=== PATIENT | male | born 1975 | race Caucasian/White ===

== ENCOUNTER 2020-04-26 10:07 | Outpatient (CLI) | payer BC, SELFPAY ==
[2020-04-26 10:27] LABS: Basophils % 0.5 %; Eosinophils # 0.1 10^3/uL (0.0-0.8); Eosinophils % 1.6 %; Hematocrit 47.3 % (42.0-52.0); Hemoglobin 15.7 g/dL (11.7-16.6); Lymphocytes # 2.1 10^3/uL (0.8-4.8); Lymphocytes % 25.7 %; Mean Corpuscular HGB Conc 33.2 g/dL (30.0-36.0); Mean Corpuscular Hemoglobin 32.8 pg (28.0-34.0); Mean Corpuscular Volume 98.7 fL (80-94); Mean Platelet Volume 10.3 fL (7.4-10.4); Monocytes # 0.6 10^3/uL (0.2-0.9); Monocytes % 7.5 %; Neutrophils # 5.2 10^3/uL (1.8-7.7); Neutrophils % 64.5 %; Nucleated Red Blood Cells % 0 %; Platelet Count 236 10^3/cmm (130-400); Red Blood Count 4.79 10^6/uL (4.1-5.3); Red Cell Distribution Width 12.6 % (12.1-15.1); White Blood Count 8.1 10^3/uL (4.0-10.0)
[2020-04-26 10:59] LABS: Carcinoembryonic Antigen 1.4 ng/mL (0.0-4.7)
[2020-04-26 11:10] LABS: Alanine Aminotransferase 54 U/L (0-41); Albumin Level 4.2 g/dL (3.5-5.2); Alkaline Phosphatase 48 IU/L (40-130); Anion Gap 18.5 (5-19); Aspartate Amino Transferase 50 U/L (0-40); Blood Urea Nitrogen 11 mg/dL (6-20); Calcium 9.8 mg/dL (8.5-10.5); Carbon Dioxide 25 mmol/L (22-29); Chloride 98 mmol/L (98-107); Globulin 3.3 g/dL (1.3-4.6); Glomerular Filtration Rate 81.9 mL/min (90-130); Glucose 147 mg/dL (65-115); Osmolality Calculated 283 mOsm/kg (285-295); Potassium 4.5 mmol/L (3.5-5.1); Sodium 137 mmol/L (136-145); Total Bilirubin 0.4 mg/dL (0.15-1.2); Total Protein 7.5 g/dL (6.6-8.7)
--- NOTE | 2020-04-30 07:05 | ONC FU_ITS ---
Dr. Dias Patient Follow-Up Note Patient: Chino Onofre Unit #: [id number]: 1975 Dicatated By: Michael Dias M.D.Date of Visit:Apr 26, 2020 Onc Med Follow-up/Prog Note Chief Complaint: Colon cancer. 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 He has been in good general health. In September he had presented to the emergency room with new onset of hematochezia. CT of the abdomen/pelvis at that time showed a short segment of bowel within the mid sigmoid colon with some adjacent hazy and stranding opacities within the sigmoid mesentery. The findings were felt to most likely represent mild colitis. He had no further evaluation at that time. However, his symptoms persisted, and he then did have evaluation with sigmoidoscopy on 11/25/2018. It showed a malignant appearing mass at the sigmoid colon. Biopsy showed low-grade infiltrating adenocarcinoma. CT scans of the chest, abdomen, and pelvis continued to show a short segment narrowing of the mid sigmoid colon with wall thickening and surrounding mesenteric hyperemia, unchanged from the prior study. There was no retroperitoneal or periaortic lymphadenopathy noted, and there was no other evidence of metastatic disease in the chest, abdomen, or pelvis. His baseline CEA level was 8.1 ng/mL. He was referred to Dr. Roberson. On 12/07/2018 he underwent robotic-assisted low anterior resection. His laparoscopic exploration showed no unexpected abnormalities and no evidence of intra-abdominal metastasis. The tumor was clearly identified in the mid sigmoid:. It was noted to be rather bulky, but not adherent to any adjacent structures. Pathology showed moderately differentiated invasive adenocarcinoma measuring 8.6 x 5.7 cm. The tumor was noted to invade the visceral peritoneum. There was no involvement in 30 lymph nodes, but a separate tumor deposit was present. His pathologic staging was T4a, N1c. I had seen him initially on 12/22/2018. In the setting of stage IIIB disease, he was recommended to undergo adjuvant chemotherapy with 4 cycles of oxaliplatin/Xeloda. He returned to begin cycle 1 of his adjuvant chemotherapy on 01/06/2019. He tolerated it with acceptable toxicity, limited to mild fatigue and mild, transient neuropathy. He was able to continue with cycle 2 on 01/27/2019. He did have significant worsening of his neuropathy symptoms with his 2nd cycle of treatment, including pain in his left arm associated with the oxaliplatin infusion. He also had much more intense paresthesia and cold sensitivity, and it lasted longer. The oxaliplatin dosage was reduced beginning with cycle 3. He began his 4th cycle of treatment on 03/10/2019. His surveillance CT scan on 10/11/2019 showed no evidence of a neoplastic process in the chest or upper abdominal area. The abdomen/pelvis was inadvertently not requested.. He is seen for a scheduled visit. He has been feeling okay. His main issue is that he has been working on his weight control. Recently he has been able to lose 12 pounds. His blood pressure is a little high when checked here today, but he says it is okay at home. He has good energy and he has normal activity. ECOG score is 0. He does have good appetite. He has no fever or night sweats. He has some allergy related sinus symptoms. He has no shortness of breath, cough, or chest pain. He has no GI or complaints. He has no significant joint or bone pain. He has no residual neuropathy. Medications: Acetaminophen 1 Tablet (of 500 mg) Oral PRN, Lisinopril 1 Tablet (of 10 mg) Oral daily Allergies: No Known Allergies. Review of Systems: Constitutional - He is feeling good generally. His energy is good and he has normal activity. His appetite is good. He reports that his has intentionally lost about 12 pounds with excersing. No fever, night sweats, or hot flashes. ECOG score is 0, ENMT - He has seasonal allergies. No mouth sores. No sore throat or difficulty swallowing, Hematologic/Lymphatic - No abnormal bruising or bleeding, Respiratory - No shortness of breath. No cough. No pleuritic pain or hemoptysis, Cardiovascular - No angina pain. No palpitations, Gastrointestinal - No nausea or vomiting. No heartburn or acid reflux. No diarrhea or constipation. No blood in the stool or black stools, Genitourinary (M) - No dysuria or hematuria. No urinary frequency. No urgency or incontinence, Musculoskeletal - No joint or bone pain, Integumentary - No skin complications, Neurologic - No headache or dizziness. No numbness/tingling or other neuropathy symptoms, Psychiatric - He has some mild anxiety. No depression. No insomnia. Vital Signs: Performed on Apr 26, 2020 11:33 Height - 72.00 in Weight - 348.0 lbs (HIGH) BSA - 2.70 sq.m BMI - 47.20 (HIGH) Temperature - 97.9 F (LOW) Pulse - 92 /min Respiration - 24 /min BP - 166/94 mm(hg) (HIGH) O2 Sat - 99 % Pain - 0 Physical Examination: Constitutional - He looks good generally, Eyes - Sclerae nonicteric. Conjunctivae clear, ENMT - No lesions noted in the oral cavity, Hematologic/Lymphatic - No cervical, clavicular, or axillary adenopathy, Respiratory - Lungs are clear with good air movement bilaterally, Cardiovascular - Heart rhythm is regular. There is no murmur, gallop, or rub noted, Abdomen - Soft. Liver and spleen are not enlarged. There is no abdominal mass or ascites noted and there is no inguinal adenopathy, Extremities - No edema, Neurologic - No focal neurologic deficits noted. Lab/Imaging: Test performed on Apr 26, 2020 10:18 Sodium 137 mmol/L Potassium 4.5 mmol/L Chloride 98 mmol/L CO2 25 mmol/L Anion Gap 18.5 BUN 11 mg/dL Creatinine 1.0 mg/dL Cr Clearance (Est) 196.3300 mL/min eGFR 81.9 mL/min Glucose 147 mg/dL Calcium 9.8 mg/dL Protein, Total 7.5 g/dL Albumin 4.2 g/dL Globulin 3.3 g/dL Bilirubin, Total 0.4 mg/dL ALT (SGPT) 54 U/L AST (SGOT) 50 U/L Alkaline Phosphatase 48 IU/L WBC 8.1 10 3/uL RBC 4.79 10 6/uL HGB 15.7 g/dL HCT 47.3 % MCV 98.7 fL MCH 32.8 pg MCHC 33.2 g/dL RDW 12.6 % Platelet Count 236 10 3/cmm MPV 10.3 fL Neutrophils 5.2 10 3/uL Lymphocytes 2.1 10 3/uL Monocytes 0.6 10 3/uL Eosinophils 0.1 10 3/uL Basophils 0.0 10 3/uL Neutrophil % 64.5 % Lymphocyte % 25.7 % Monocyte % 7.5 % Eosinophil % 1.6 % Basophils % 0.5 % NRBC % 0 % CEA 1.4 ng/mL Impression: 1. 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 2. He will underwent robotic-assisted low anterior resection on 12/07/2018. 3. His preoperative evaluation included sigmoidoscopy and staging CT scans of the chest, abdomen, and pelvis. He did not have a full colonoscopy. His other medical illnesses include: 4. Hypertension. 5. Anxiety. He was given adjuvant chemotherapy with oxaliplatin/Xeloda. He began cycle 1 on 01/06/2019. He tolerated it with acceptable toxicity, which included just mild, transient neuropathy. With cycle 2 the neuropathy worsened significantly, though it subsequently did resolve. The oxaliplatin dosage was reduced beginning with the 3rd cycle. He began cycle 4 on 03/10/2019. Overall, he tolerated the chemotherapy very well. During follow-up his activity tolerance had returned to normal, and he had complete resolution of his neuropathy symptoms. Overall, he has been doing very well clinically. His current laboratory studies show mild elevation of his liver enzymes. His CEA, though, is stable. Plan: He remains on observation/expectant management for the colon cancer. Due to the mildly elevated liver enzymes, he will be scheduled for a CT abdomen/pelvis. Assuming there is no evidence of metastatic disease, I will just plan to see him again in 6 months. In the meantime, I will check with Dr. Mackenzie regarding his surveillance colonoscopy schedule. Signed By: Michael Dias M.D. <<Signature on File>>
== END 2020-04-26 10:08 | disposition home or self-care (01) ==
LOC: ONCMED 10:11
PROVIDERS: PCP Family Medicine; Visit Provider Internal Medicine Medical Oncology
DX: C18.7 Malignant neoplasm of sigmoid colon (principal); R94.5 Abnormal results of liver function studies; I10 Essential (primary) hypertension; F41.9 Anxiety disorder, unspecified; Z90.49 Acquired absence of other specified parts of digestive tract; Z92.21 Personal history of antineoplastic chemotherapy
CPT/HCPCS: 80053; 82378; 85025; G0463

== ENCOUNTER 2020-05-18 12:59 | Outpatient (CLI) | payer BC, SELFPAY ==
--- NOTE | 2020-05-18 13:04 | CT_ITS ---
WS: [id number] CT ABDOMEN PELVIS TECHNIQUE: Contrast-enhanced CT of the abdomen and pelvis with coronal and sagittal reformatted image s. CLINICAL INFORMATION: COLON CANCER COMPARISON: CT [address] 2017 DLP: 1514.[address] scans at [facility] use at least one of these dose optimization techniques: automat ed exposure control; mA and/or kV adjustment per patient size (includes targeted exams where dose is matched to clinical indication); or iterative reconstruction. FINDINGS: Postoperative changes partial sigmoid resection new from previous. Mild narrowing at the anastomosis appears patent. No evidence of residual or recurrent disease in the sigmoid colon. Sigmoid diverticul osis. No evidence of acute diverticulitis. No evidence of metastatic disease in the abdomen or pelvis. Liver is normal in appearance. Normal gal lbladder. Normal portal vein and splenic vein. Pancreatic fatty atrophy. Spleen is normal. Normal gas troesophageal junction. Normal perirectal fat. Adrenal glands are normal. No periaortic or retroperitoneal lymphadenopathy. N o inguinal lymphadenopathy. Normal caliber abdominal aorta. Normal renal parenchymal enhancement. CT/CT abdomen pelvis w con* [id number] IMPRESSION: 1. Postoperative changes partial sigmoid resection new from previous. No evide nce of residual or recurrent disease. Mild narrowing at the anastomosis. 2. No abdominal or pelvic lymphadenopathy. 3. No evidence of metastatic disease in the abdomen or pelvis. 4. No other significant changes.
[2020-05-18] MEDS: iohexol 300 mg/mL 100 mL Btl IV (13:23)
[2020-05-18] MEDS: iohexol 300 mg/mL 50 mL Btl PO (13:23)
== END 2020-05-18 13:00 | disposition home or self-care (01) ==
LOC: RADWPI 13:02
PROVIDERS: Family Provider Family Medicine; PCP Family Medicine; Visit Provider Internal Medicine Medical Oncology
DX: C18.7 Malignant neoplasm of sigmoid colon (principal)
CPT/HCPCS: 74177; Q9967

== ENCOUNTER 2020-11-15 09:56 | Outpatient (CLI) | payer OTHER, SELFPAY ==
[2020-11-15 10:29] LABS: Basophils # 0.1 10^3/uL (0.0-0.1); Basophils % 0.5 %; Eosinophils # 0.1 10^3/uL (0.0-0.8); Eosinophils % 1.5 %; Hematocrit 46.7 % (42.0-52.0); Hemoglobin 15.8 g/dL (11.7-16.6); Lymphocytes % 20.5 %; Mean Corpuscular HGB Conc 33.8 g/dL (30.0-36.0); Mean Corpuscular Hemoglobin 33.3 pg (28.0-34.0); Mean Corpuscular Volume 98.5 fL (80-94); Mean Platelet Volume 10.1 fL (7.4-10.4); Monocytes # 0.6 10^3/uL (0.2-0.9); Monocytes % 6.6 %; Neutrophils # 6.79 10^3/uL (1.8-7.7); Neutrophils % 70.6 %; Nucleated Red Blood Cells % 0 %; Platelet Count 258 10^3/cmm (130-400); Red Blood Count 4.74 10^6/uL (4.1-5.3); Red Cell Distribution Width 12.3 % (12.1-15.1); White Blood Count 9.6 10^3/uL (4.0-10.0)
[2020-11-15 10:58] LABS: Alanine Aminotransferase 33 U/L (0-41); Albumin Level 4.3 g/dL (3.5-5.2); Alkaline Phosphatase 53 IU/L (40-130); Anion Gap 15.2 (5-19); Aspartate Amino Transferase 29 U/L (0-40); Blood Urea Nitrogen 11 mg/dL (6-20); Calcium 9.7 mg/dL (8.5-10.5); Carbon Dioxide 27 mmol/L (22-29); Chloride 98 mmol/L (98-107); Chol HDL Ratio 4.03 mg/dL (1.0-5.00); Cholesterol 145 mg/dL (0-200); Globulin 2.6 g/dL (1.3-4.6); Glomerular Filtration Rate 92.1 mL/min (90-130); Glucose 149 mg/dL (65-115); HDL Cholesterol 36 mg/dL (60-100); LDL Cholesterol Calculated 76 mg/dL (50-129); LDL HDL Ratio 2.11 RATIO (0.00-3.22); Osmolality Calculated 284 mOsm/kg (285-295); Potassium 4.2 mmol/L (3.5-5.1); Sodium 136 mmol/L (136-145); Total Bilirubin 0.6 mg/dL (0.15-1.2); Total Protein 6.9 g/dL (6.6-8.7); Triglycerides 167 mg/dL (0-150)
[2020-11-15 14:10] LABS: Carcinoembryonic Antigen 1.7 ng/mL (0.0-4.7)
--- NOTE | 2020-11-18 14:52 | ONC FU_ITS ---
Dr. Dias Patient Follow-Up Note Patient: Chino nOofre Unit #: [id number]: 1975 Dicatated By: Michael Dias M.D.Date of Visit:Nov 15, 2020 Onc Med Follow-up/Prog Note Chief Complaint: Colon cancer. 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 He has been in good general health. In September he had presented to the emergency room with new onset of hematochezia. CT of the abdomen/pelvis at that time showed a short segment of bowel within the mid sigmoid colon with some adjacent hazy and stranding opacities within the sigmoid mesentery. The findings were felt to most likely represent mild colitis. He had no further evaluation at that time. However, his symptoms persisted, and he then did have evaluation with sigmoidoscopy on 11/25/2018. It showed a malignant appearing mass at the sigmoid colon. Biopsy showed low-grade infiltrating adenocarcinoma. CT scans of the chest, abdomen, and pelvis continued to show a short segment narrowing of the mid sigmoid colon with wall thickening and surrounding mesenteric hyperemia, unchanged from the prior study. There was no retroperitoneal or periaortic lymphadenopathy noted, and there was no other evidence of metastatic disease in the chest, abdomen, or pelvis. His baseline CEA level was 8.1 ng/mL. He was referred to Dr. Roberson. On 12/07/2018 he underwent robotic-assisted low anterior resection. His laparoscopic exploration showed no unexpected abnormalities and no evidence of intra-abdominal metastasis. The tumor was clearly identified in the mid sigmoid:. It was noted to be rather bulky, but not adherent to any adjacent structures. Pathology showed moderately differentiated invasive adenocarcinoma measuring 8.6 x 5.7 cm. The tumor was noted to invade the visceral peritoneum. There was no involvement in 30 lymph nodes, but a separate tumor deposit was present. His pathologic staging was T4a, N1c. I had seen him initially on 12/22/2018. In the setting of stage IIIB disease, he was recommended to undergo adjuvant chemotherapy with 4 cycles of oxaliplatin/Xeloda. He returned to begin cycle 1 of his adjuvant chemotherapy on 01/06/2019. He tolerated it with acceptable toxicity, limited to mild fatigue and mild, transient neuropathy. He was able to continue with cycle 2 on 01/27/2019. He did have significant worsening of his neuropathy symptoms with his 2nd cycle of treatment, including pain in his left arm associated with the oxaliplatin infusion. He also had much more intense paresthesia and cold sensitivity, and it lasted longer. The oxaliplatin dosage was reduced beginning with cycle 3. He began his 4th cycle of treatment on 03/10/2019. His surveillance CT scan on 10/11/2019 showed no evidence of a neoplastic process in the chest or upper abdominal area. The abdomen/pelvis was inadvertently not requested. At his follow-up visit in April 2020 his liver enzymes are noted to be slightly elevated. His CT abdomen/pelvis on 05/18/2020 showed no evidence of metastatic disease. He is seen for a scheduled visit. He has been feeling pretty good generally. His main complaint is he has been having a lot of anxiety. He has had somewhat limited activity tolerance. ECOG score is 1. He has good appetite. He has been trying to lose weight, and he is down 8 or 9 pounds. He has no fever or night sweats. He has no shortness of breath, cough, or chest pain. He has been having some problems with hemorrhoids, and he has had a little bit of rectal bleeding with it. He has some difficulty passing hard stools. He has no complaints. He has no significant joint or bone pain. He has no residual neuropathy symptoms. Medications: Acetaminophen 1 Tablet (of 500 mg) Oral PRN, Lisinopril 1 Tablet (of 10 mg) Oral daily Allergies: No Known Allergies. Vital Signs: Performed on Nov 15, 2020 11:38 Height - 72.00 in Weight - 340.8 lbs (LOW) BSA - 2.67 sq.m BMI - 46.22 (HIGH) Temperature - 97.0 F (LOW) Pulse - 106 /min (HIGH) Respiration - 18 /min O2 Sat - 96 % Pain - 0 Physical Examination: Constitutional - He looks good generally, Eyes - Sclerae nonicteric. Conjunctivae clear, ENMT - No lesions noted in the oral cavity, Hematologic/Lymphatic - No cervical, clavicular, or axillary adenopathy, Respiratory - Lungs are clear with good air movement bilaterally, Cardiovascular - Heart rhythm is regular. There is no murmur, gallop, or rub noted, Abdomen - Soft. Liver and spleen are not enlarged. There is no abdominal mass or ascites noted and there is no inguinal adenopathy, Extremities - No edema, Neurologic - No focal neurologic deficits noted. Lab/Imaging: Test performed on Nov 15, 2020 10:15 WBC 9.6 10 3/uL RBC 4.74 10 6/uL HGB 15.8 g/dL HCT 46.7 % MCV 98.5 fL MCH 33.3 pg MCHC 33.8 g/dL RDW 12.3 % Platelet Count 258 10 3/cmm MPV 10.1 fL Neutrophils 6.79 10 3/uL Lymphocytes 2.0 10 3/uL Monocytes 0.6 10 3/uL Eosinophils 0.1 10 3/uL Basophils 0.1 10 3/uL Neutrophil % 70.6 % Lymphocyte % 20.5 % Monocyte % 6.6 % Eosinophil % 1.5 % Basophils % 0.5 % NRBC % 0 % CEA 1.7 ng/mL Historic Problem List: 1. Moderately differentiated invasive adenocarcinoma of the sigmoid colon, stage IIIB (pT4a, pN1c, M0). 2. He underwent robotic-assisted low anterior resection on 12/07/2018. 3. He was given adjuvant chemotherapy with 4 cycles oxaliplatin/Xeloda, completed in March 2019. 4. Hypertension. 5. Anxiety. Problems Addressed with this Encounter and Plan: 1. Moderately differentiated invasive adenocarcinoma of the sigmoid colon, stage IIIB (pT4a, pN1c, M0). He underwent robotic-assisted low anterior resection on 12/07/2018. He was given adjuvant chemotherapy with 4 cycles oxaliplatin/Xeloda, completed in March 2019. At his follow-up visit in April 2020 his liver enzymes were noted to be slightly elevated. CT abdomen/pelvis on 05/18/2020 showed no evidence of metastatic disease. He has since then had some ongoing problems with his anxiety and recently he has had some rectal bleeding, presumed to be hemorrhoidal. Thus far there has been no evidence of recurrence of the colon cancer. He is scheduled to see Dr. Mackenzie in regard to the hemorrhoids/rectal bleeding. I will tentatively just plan a follow-up visit here in 6 months. He will have restaging CT scans prior to that visit. 2. Hypertension. His blood pressure is significantly elevated, but that may just be anxiety related. He will be following up with Dr. Wynne for that problem. Signed By: Michael Dias M.D. <<Signature on File>>
== END 2020-11-15 09:57 | disposition home or self-care (01) ==
LOC: ONCMED 09:59
PROVIDERS: Family Provider Family Medicine; PCP Family Medicine; Visit Provider Internal Medicine Medical Oncology
DX: Z08 Encounter for follow-up examination after completed treatment for malignant neoplasm (principal); Z85.038 Personal history of other malignant neoplasm of large intestine; F41.9 Anxiety disorder, unspecified; I10 Essential (primary) hypertension; K62.5 Hemorrhage of anus and rectum; Z92.21 Personal history of antineoplastic chemotherapy; Z90.49 Acquired absence of other specified parts of digestive tract
CPT/HCPCS: 36415; 80053; 80061; 82378; 85025; G0463

== ENCOUNTER → 2021-01-04 11:39 | Outpatient (BNVA) | payer OTHER, SELFPAY | PROVIDERS: Family Provider Family Medicine; PCP Family Medicine; Visit Provider Surgery | DX: Z11.52 Encounter for screening for COVID-19 (principal) | CPT/HCPCS: 87635 ==

== ENCOUNTER 2021-01-10 05:43 | Day surgery (SDC) | payer OTHER, SELFPAY ==
[2021-01-09 10:46] VITALS: BMI 44.0
[2021-01-10 05:56] VITALS: BP 172/107; PULSE 89; RESP 16; TEMP 36.3; O2SAT 97
[2021-01-10] MEDS: sodium chloride 0.9% 1,000 ML 30 ML IV (06:20)
--- NOTE | 2021-01-10 06:27 | W.PM.OPSUD ---
Surgery/Procedure H&P Update DATE OF PROCEDURE: January 10, 2021 DATE H&P PERFORMED: 12/25/20 H&P UPDATE INFORMATION: No changes to prior documentation PREOP DIAGNOSIS: Hematochezia, anorectal pain, history of colon cancer PLANNED PROCEDURE: Operation Date: 01/10/21 07:00 Proposed Procedures p Sigmoidoscopy 96037 K92.1(Not Applicable) - Irvin Mackenzie MD s Poss Hemorroidectomy 28134 Z85.038 K62.89(Not Applicable) - Irvin Mackenzie MD
--- NOTE | 2021-01-10 06:51 | ANES.PREANE2 ---
Pre-Anesthetic Assessment Pre-Anesthetic Assessment: Height/Weight: Height 1.83 m Weight 147.418 kg Temp Pulse Resp BP Pulse Ox 97.4 F L 89 16 172/107 97 01/10/21 05:56 01/10/21 05:56 01/10/21 05:56 01/10/21 05:56 01/10/21 05:56 Preop Diagnosis: Hematochezia, anorectal pain, history of colon cancer Proposed Procedure: Operation Date: 01/10/21 07:00 Proposed Procedures p Sigmoidoscopy 47776 K92.1(Not Applicable) - Irvin Mackenzie MD s Poss Hemorroidectomy 76047 Z85.038 K62.89(Not Applicable) - Irvin Mackenzie MD Familial anesthetic complications: None Was Beta Nadja taken within 24 hours: N/A Last intake: Intake Last Liquid Date 01/09/21 Last Liquid Time 23:00 Last Solid Date 01/08/21 Last Solid Time 21:00 Social: Social History: Tobacco and No alcohol Comment: occassional cigar Exam: Pre-Anes Outpt Exam: alert, oriented x 3, clear to auscultation bilaterally and regular rate & rhythm Airway: Cervical ROM: WNL MP: 3 Dentition: Full CV/HEM: CV/HEM: HTN Metabolic: Metabolic: Morbid obesity Anesthetic Plan: ASA status: 2 Anesthesia: MAC Risk of > 500 ml blood loss (7ml/kg in children): No Meds/Allergies Current Medications: Current Medications Generic Name Dose Route Start Last Admin Trade Name Freq PRN Reason Stop Dose Admin Sodium Chloride 1,000 mls @ 30 ml s/hr 01/10/21 06:00 01/10/21 06:20 Sodium Chloride 0.9% IV 01/11/21 05:59 30 mls/hr .Q24H YONY Administration Data Anesthesia Cardiac Studies: No Data to Display
[2021-01-10 07:26] VITALS: BP 164/108; PULSE 96; RESP 18; TEMP 36.8; O2SAT 96
[2021-01-10 07:30] VITALS: BP 149/87; PULSE 71; RESP 18; O2SAT 100
--- NOTE | 2021-01-10 07:30 | P.PCN_ITS ---
PACU note PACU note: VSS, Good respiratory effort, report to [employer] Post-Anesthesia Exam: awake
--- NOTE | 2021-01-10 07:30 | PM.PACU ---
PACU note PACU note: VSS, Good respiratory effort, report to [employer] Post-Anesthesia Exam: awake
[2021-01-10 07:36] VITALS: BP 177/82; PULSE 83; RESP 18; TEMP 36.8; O2SAT 100
[2021-01-10 07:48] VITALS: BP 178/92; PULSE 86; RESP 18; O2SAT 97
[2021-01-10 08:04] VITALS: BP 153/98; PULSE 89; RESP 18; O2SAT 98
--- NOTE | 2021-01-10 14:46 | ANE.PACU2 ---
Inpatient post-anesthesia follow up: Airway intact: Yes Vital signs: Temperature 98.2 F Pulse Rate 89 Respiratory Rate 18 Blood Pressure 153/98 Pulse Oximetry 98 Oxygen Delivery Me thod Room Air Oxygen Flow Rate 8 Fraction of Inspir ed Oxygen Hydration adequate: Yes Nausea and vomiting: No Pain level: 3 Mental status: Baseline
== END 2021-01-10 08:10 | disposition home or self-care (01) ==
PROVIDERS: PCP Family Medicine; Visit Provider Surgery
PROC: 0DJD8ZZ Inspection of Lower Intestinal Tract, Via Natural or Artificial Opening Endoscopic (ICD-10-PCS; CPT 45330; principal; 2021-01-10 07:00)
DX: K92.1 Melena (principal); K64.8 Other hemorrhoids; C18.7 Malignant neoplasm of sigmoid colon; I10 Essential (primary) hypertension; E66.01 Morbid (severe) obesity due to excess calories; Z68.41 Body mass index [BMI] 40.0-44.9, adult
CPT/HCPCS: 12345; 45331; 45335; 88305; J2704; J3010; J7030

== ENCOUNTER 2021-01-14 15:21 | Outpatient (CLI) | payer OTHER, SELFPAY ==
--- NOTE | 2021-01-15 07:29 | ONC FU_ITS ---
Dr. Dias Patient Follow-Up Note Patient: Chino Onofre Unit #: [id number]: 1975 Dicatated By: Michael Dias M.D.Date of Visit:Jan 14, 2021 Onc Med Follow-up/Prog Note Chief Complaint: Colon cancer. 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 He has been in good general health. In September he had presented to the emergency room with new onset of hematochezia. CT of the abdomen/pelvis at that time showed a short segment of bowel within the mid sigmoid colon with some adjacent hazy and stranding opacities within the sigmoid mesentery. The findings were felt to most likely represent mild colitis. He had no further evaluation at that time. However, his symptoms persisted, and he then did have evaluation with sigmoidoscopy on 11/25/2018. It showed a malignant appearing mass at the sigmoid colon. Biopsy showed low-grade infiltrating adenocarcinoma. CT scans of the chest, abdomen, and pelvis continued to show a short segment narrowing of the mid sigmoid colon with wall thickening and surrounding mesenteric hyperemia, unchanged from the prior study. There was no retroperitoneal or periaortic lymphadenopathy noted, and there was no other evidence of metastatic disease in the chest, abdomen, or pelvis. His baseline CEA level was 8.1 ng/mL. He was referred to Dr. Roberson. On 12/07/2018 he underwent robotic-assisted low anterior resection. His laparoscopic exploration showed no unexpected abnormalities and no evidence of intra-abdominal metastasis. The tumor was clearly identified in the mid sigmoid:. It was noted to be rather bulky, but not adherent to any adjacent structures. Pathology showed moderately differentiated invasive adenocarcinoma measuring 8.6 x 5.7 cm. The tumor was noted to invade the visceral peritoneum. There was no involvement in 30 lymph nodes, but a separate tumor deposit was present. His pathologic staging was T4a, N1c. I had seen him initially on 12/22/2018. In the setting of stage IIIB disease, he was recommended to undergo adjuvant chemotherapy with 4 cycles of oxaliplatin/Xeloda. He returned to begin cycle 1 of his adjuvant chemotherapy on 01/06/2019. He tolerated it with acceptable toxicity, limited to mild fatigue and mild, transient neuropathy. He was able to continue with cycle 2 on 01/27/2019. He did have significant worsening of his neuropathy symptoms with his 2nd cycle of treatment, including pain in his left arm associated with the oxaliplatin infusion. He also had much more intense paresthesia and cold sensitivity, and it lasted longer. The oxaliplatin dosage was reduced beginning with cycle 3. He began his 4th cycle of treatment on 03/10/2019. His surveillance CT scan on 10/11/2019 showed no evidence of a neoplastic process in the chest or upper abdominal area. The abdomen/pelvis was inadvertently not requested. At his follow-up visit in April 2020 his liver enzymes are noted to be slightly elevated. His CT abdomen/pelvis on 05/18/2020 showed no evidence of metastatic disease. He was seen for a scheduled follow-up visit on 11/15/2020. His CEA was stable at 1.7 ng/mL. He also appeared stable clinically, but that time he had developed some mild rectal bleeding which he had attributed to hemorrhoids. Subsequent to that visit, he was seen by Dr. Mackenzie for evaluation of the bleeding. His repeat colonoscopy on 01/09/2021 showed a protruding, small to medium sized malignant appearing mass in the distal sigmoid colon at the previous anastomosis, estimated at 15 to 16 cm. There were stigmata of bleeding from the mass. The rectum showed just small sized uncomplicated internal hemorrhoids without evidence of bleeding. There were no other abnormal findings. Biopsy results at this point are still pending. He has still been feeling good generally. He is still having a little bit of blood in the stool, but that began only after he had started working out again and was exercising more strenuously. He has no other associated GI symptoms, and he is still feeling good generally. Medications: Acetaminophen 1 Tablet (of 500 mg) Oral PRN, Lisinopril 1 Tablet (of 10 mg) Oral daily Allergies: No Known Allergies. Vital Signs: Performed on Jan 14, 2021 15:30 Height - 72.00 in Weight - 320.6 lbs (LOW) BSA - 2.60 sq.m BMI - 43.48 (HIGH) Temperature - 98.3 F (LOW) Pulse - 87 /min Respiration - 18 /min BP - 159/83 mm(hg) (HIGH) O2 Sat - 97 % Pain - 0 Fatigue - 0 Lab/Imaging: Test performed on Nov 15, 2020 10:15 WBC 9.6 10 3/uL RBC 4.74 10 6/uL HGB 15.8 g/dL HCT 46.7 % MCV 98.5 fL MCH 33.3 pg MCHC 33.8 g/dL RDW 12.3 % Platelet Count 258 10 3/cmm MPV 10.1 fL Neutrophils 6.79 10 3/uL Lymphocytes 2.0 10 3/uL Monocytes 0.6 10 3/uL Eosinophils 0.1 10 3/uL Basophils 0.1 10 3/uL Neutrophil % 70.6 % Lymphocyte % 20.5 % Monocyte % 6.6 % Eosinophil % 1.5 % Basophils % 0.5 % NRBC % 0 % CEA 1.7 ng/mL Problem List: 1. Moderately differentiated invasive adenocarcinoma of the sigmoid colon, stage IIIB (pT4a, pN1c, M0). 2. Hypertension. 3. Anxiety. 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 He underwent robotic-assisted low anterior resection on 12/07/2018. He was given adjuvant chemotherapy with 4 cycles oxaliplatin/Xeloda, completed in March 2019. At his follow-up visit in April 2020 his liver enzymes were noted to be slightly elevated. CT abdomen/pelvis on 05/18/2020 showed no evidence of metastatic disease. At his follow-up visit in November 2020 he had reported some rectal bleeding. It was presumed to be hemorrhoidal. His CEA at that time was stable at 1.7 ng/mL and his clinical status was otherwise stable. However, his colonoscopy on 01/09/2001 showed evidence of anastomotic recurrence in the distal sigmoid colon, estimated at 15 to 16 cm. With that finding, he will be scheduled for repeat lab studies to include CBC, comprehensive metabolic profile, and CEA level and he also will be scheduled for restaging CT scans. I will contact Dr. Mackenzie in regard to the biopsy results and we will then discuss his further management, which I assume will include referral to a colorectal surgeon for surgical resection. Signed By: Michael Dias M.D. <<Signature on File>>
== END 2021-01-14 15:22 | disposition home or self-care (01) ==
PROVIDERS: PCP Family Medicine; Visit Provider Internal Medicine Medical Oncology
DX: C18.7 Malignant neoplasm of sigmoid colon (principal); Z90.49 Acquired absence of other specified parts of digestive tract
CPT/HCPCS: 99214

== ENCOUNTER 2021-01-24 08:23 | Outpatient (CLI) | payer OTHER, SELFPAY ==
--- NOTE | 2021-01-24 08:55 | CT_ITS ---
WS: [id number] CT scan of the chest With IV contrast, CT scan of the abdomen and pelvis with IV contrast and oral contrast. Additional two-dimensional coronal and sagittal reconstruction was performed. 01/24/2021 Clinical Data: MALIGNANT NEOPLASM OF SIGMOID COLON, POLYNEUROPATHY Comparison: CT abdomen and pelvis, 05/18/2020, CT chest, 10/11/2019. DLP: 2864.[address] scans at [facility] use at least one of these dose optimization techniques: automat ed exposure control; mA and/or kV adjustment per patient size (includes targeted exams where dose is matched to clinical indication); or iterative reconstruction. Findings: Chest: No nodules, masses or effusions are seen. The heart size is at the upper limits of normal with no pericardial effusion. There is a minimal calc ification in the left coronary artery. No pneumonia or pneumothorax is seen. The pulmonary arterial system and thoracic aorta demonstrate no abnormalities or dilatations. There is no axillary or significant mediastinal adenopathy. The bony thorax shows no metastatic lesio ns. There is osteoarthritic change of the midthoracic vertebral bodies. Abdomen/pelvis: The liver, gallbladder, spleen, adrenal glands and pancreas are normal. The kidneys show equal bilateral contrast excretion with no cyst or masses. No hydronephrosis or preet l calculi are seen. The abdominal aorta is normal in size. No appendicitis or diverticulitis is seen. Oral contrast is in the stomach and small bowel and there is no bowel dilatation. No abscess, adenopathy, ascites, mass, obstruction or free air is seen. The bladder is unremarkable. The anastomosis in the sigmoid colon is seen and no recurrence is noted. No inguinal hernia is seen. The bones of the lower thorax, lumbar spine, pelvis, and hips are normal. CT/CT chest abd pel w con* Impression: 1. Negative for acute intra-abdominal or pelvic abnormalities. 2. No metastatic lesions are seen.
[2021-01-24] MEDS: iohexol 300 mg/mL 50 mL Btl PO (09:14)
[2021-01-24] MEDS: iohexol 350 mg/mL 100 mL Btl IV (10:17)
== END 2021-01-24 08:24 | disposition home or self-care (01) ==
LOC: RADWPI 08:25
PROVIDERS: PCP Family Medicine; Visit Provider Internal Medicine Medical Oncology
DX: C18.7 Malignant neoplasm of sigmoid colon (principal); G62.9 Polyneuropathy, unspecified
CPT/HCPCS: 71260; 74177; Q9967

== ENCOUNTER 2021-05-28 09:17 | Outpatient (CLI) | payer OTHER, SELFPAY ==
[2021-05-28 09:52] LABS: Basophils # 0.1 10^3/uL (0.0-0.1); Basophils % 0.7 %; Eosinophils # 0.1 10^3/uL (0.0-0.8); Eosinophils % 1.7 %; Hemoglobin 15.3 g/dL (11.7-16.6); Lymphocytes # 1.9 10^3/uL (0.8-4.8); Lymphocytes % 26.6 %; Mean Corpuscular HGB Conc 32.6 g/dL (30.0-36.0); Mean Corpuscular Hemoglobin 30.7 pg (28.0-34.0); Mean Corpuscular Volume 94.2 fL (80-94); Mean Platelet Volume 10.2 fL (7.4-10.4); Monocytes # 0.5 10^3/uL (0.2-0.9); Monocytes % 7.2 %; Neutrophils # 4.41 10^3/uL (1.8-7.7); Neutrophils % 63.5 %; Nucleated Red Blood Cells % 0 %; Platelet Count 266 10^3/cmm (130-400); Red Blood Count 4.99 10^6/uL (4.1-5.3); Red Cell Distribution Width 13.2 % (12.1-15.1)
--- NOTE | 2021-05-28 09:53 | CT_ITS ---
WS: [id number] CT CHEST, ABDOMEN AND PELVIS WITH CONTRAST HISTORY: COLON CANCER TECHNIQUE: Contiguous 5 mm axial imaging performed through the chest, abdomen and pelvis with IV cont rast, oral contrast has been provided. Coronal and sagittal reformats chest. Coronal and sagittal ref ormats through the abdomen and pelvis. All CT scans at [facility] use at least one of the se dose optimization techniques: automated exposure control; mA and/or kV adjustment per patient size (includes targeted exams where dose is matched to clinical indication); or iterative reconstruction. CONTRAST: Omnipaque 300; 95 mL IV. DLP: 2884.07 mGy.cm COMPARISON: 01/24/2021 and 05/18/[address]: No pulmonary mass or nodule. No pericardial or pleural effusions. No axillary, mediastinal or hilar adenopathy. Heart size is normal. Chest wall is normal. Small hiatal hernia. Abdomen CT: Diffuse moderate hepatic steatosis. No metastatic lesion in the liver. Gallbladder and sp arian and pancreas are negative. No adrenal mass. Normal kidneys. Normal aorta. Stomach and small bowel are normal. No obstruction. Rectosigmoid anastomotic sutures are identified. No recurrent or new soft tissue mass at the suture site. There is some very mild stranding in the per irectal fat which is similar to prior study. No adjacent lymphadenopathy. Pelvic CT: No free fluid or adenopathy in the pelvis. Negative urinary bladder. No osteoblastic or osteolytic bone disease. CT/CT chest abd pel w con* IMPRESSION: 1. No evidence for metastatic disease to the chest, abdomen or pelvis. 2. Rectosigmoid anastomotic site is stable. No recurrent mass or adenopathy. 3. Hepatic steatosis.
[2021-05-28 10:27] LABS: Alanine Aminotransferase 24 U/L (0-41); Albumin Level 4.1 g/dL (3.5-5.2); Alkaline Phosphatase 52 IU/L (40-130); Anion Gap 16.3 (5-19); Aspartate Amino Transferase 25 U/L (0-40); Blood Urea Nitrogen 13 mg/dL (6-20); Calcium 9.4 mg/dL (8.5-10.5); Carbon Dioxide 27 mmol/L (22-29); Chloride 100 mmol/L (98-107); Globulin 2.9 g/dL (1.3-4.6); Glomerular Filtration Rate 92.1 mL/min (90-130); Glucose 106 mg/dL (65-115); Osmolality Calculated 289 mOsm/kg (285-295); Potassium 4.3 mmol/L (3.5-5.1); Sodium 139 mmol/L (136-145); Total Bilirubin 0.4 mg/dL (0.15-1.2)
[2021-05-28 10:54] LABS: Carcinoembryonic Antigen 1.4 ng/mL (0.0-4.7)
[2021-05-28] MEDS: iohexol 300 mg/mL 50 mL Btl IV (11:33)
[2021-05-28] MEDS: iohexol 300 mg/mL 100 mL Btl IV (11:34)
== END 2021-05-28 09:18 | disposition home or self-care (01) ==
PROVIDERS: PCP Family Medicine; Visit Provider Internal Medicine Medical Oncology
DX: C18.7 Malignant neoplasm of sigmoid colon (principal); K76.0 Fatty (change of) liver, not elsewhere classified
CPT/HCPCS: 36415; 71260; 74177; 80053; 82378; 85025; Q9967

== ENCOUNTER 2021-07-24 09:54 | Outpatient (CLI) | payer OTHER, SELFPAY ==
--- NOTE | 2021-07-24 18:34 | ONC FU_ITS ---
Dr. Dias Patient Follow-Up Note Patient: Chino Onofre Unit #: [id number]: 1975 Dicatated By: Michael Dias M.D.Date of Visit:Jul 24, 2021 Onc Med Follow-up/Prog Note Chief Complaint: Colon cancer. 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 In January 2021 he was found to have anastomotic recurrence, pT3, pN0. In September 2018 he had presented to the emergency room with new onset of hematochezia. CT of the abdomen/pelvis at that time showed a short segment of bowel within the mid sigmoid colon with some adjacent hazy and stranding opacities within the sigmoid mesentery. The findings were felt to most likely represent mild colitis. He had no further evaluation at that time. However, his symptoms persisted, and he then did have evaluation with sigmoidoscopy on 11/25/2018. It showed a malignant appearing mass at the sigmoid colon. Biopsy showed low-grade infiltrating adenocarcinoma. CT scans of the chest, abdomen, and pelvis continued to show a short segment narrowing of the mid sigmoid colon with wall thickening and surrounding mesenteric hyperemia, unchanged from the prior study. There was no retroperitoneal or periaortic lymphadenopathy noted, and there was no other evidence of metastatic disease in the chest, abdomen, or pelvis. His baseline CEA level was 8.1 ng/mL. He was referred to Dr. Roberson. On 12/07/2018 he underwent robotic-assisted low anterior resection. His laparoscopic exploration showed no unexpected abnormalities and no evidence of intra-abdominal metastasis. The tumor was clearly identified in the mid sigmoid:. It was noted to be rather bulky, but not adherent to any adjacent structures. Pathology showed moderately differentiated invasive adenocarcinoma measuring 8.6 x 5.7 cm. The tumor was noted to invade the visceral peritoneum. There was no involvement in 30 lymph nodes, but a separate tumor deposit was present. His pathologic staging was T4a, N1c. I had seen him initially on 12/22/2018. In the setting of stage IIIB disease, he was recommended to undergo adjuvant chemotherapy with 4 cycles of oxaliplatin/Xeloda. He returned to begin cycle 1 of his adjuvant chemotherapy on 01/06/2019. He tolerated it with acceptable toxicity, limited to mild fatigue and mild, transient neuropathy. He was able to continue with cycle 2 on 01/27/2019. He did have significant worsening of his neuropathy symptoms with his 2nd cycle of treatment, including pain in his left arm associated with the oxaliplatin infusion. He also had much more intense paresthesia and cold sensitivity, and it lasted longer. The oxaliplatin dosage was reduced beginning with cycle 3. He began his 4th cycle of treatment on 03/10/2019. His surveillance CT scan on 10/11/2019 showed no evidence of a neoplastic process in the chest or upper abdominal area. The abdomen/pelvis was inadvertently not requested. At his follow-up visit in April 2020 his liver enzymes are noted to be slightly elevated. His CT abdomen/pelvis on 05/18/2020 showed no evidence of metastatic disease. He was seen for a scheduled follow-up visit on 11/15/2020. His CEA was stable at 1.7 ng/mL. He also appeared stable clinically, but at that time he had developed some mild rectal bleeding which he had attributed to hemorrhoids. Subsequent to that visit, he was seen by Dr. Mackenzie for evaluation of the bleeding. His repeat colonoscopy on 01/09/2021 showed a protruding, small to medium sized malignant appearing mass in the distal sigmoid colon at the previous anastomosis, estimated at 15 to 16 cm. There were stigmata of bleeding from the mass. The rectum showed just small sized uncomplicated internal hemorrhoids without evidence of bleeding. There were no other abnormal findings. He was then referred to Dr. Bossman Alanis and he underwent laparoscopic low anterior resection on 02/07/2021. Pathology showed invasive moderately differentiated colonic adenocarcinoma with transmural invasion into the pericolonic adipose tissues occurring at the peritoneal reflection. The colonic lines of resection were free of neoplasm. There was scarring at the radial margin, but without visible tumor. There was no involvement in 20 pericolonic lymph nodes. Pathologic staging was pT3, pN0. With those findings, further adjuvant chemotherapy was not recommended. His genetic screening was negative. His medical illnesses have otherwise been limited to hypertension and some chronic anxiety. He has a history of having smoked cigars off and on for 10 to 11 years, but he quit smoking in 2018. INTERIM HISTORY: Surveillance CT scans on 05/28/2021 showed no evidence of metastatic disease in the chest, abdomen, or pelvis. The rectosigmoid anastomotic site appeared stable with no evidence of recurrent mass or adenopathy. There was evidence for hepatic steatosis. He is seen for a follow-up visit. He has been feeling good generally. He indicates that the recovery from his surgery was slower this time, but he has pretty much back to normal now. His ECOG score is 0. He has good appetite. He had gained weight, and he is now actively trying to lose. He is currently down about 8 pounds. He does not have fever or night sweats. He has no shortness of breath, cough, or chest pain. He has having more frequent and more urgent bowel movement since his surgery, but he says it is gradually getting better. He has no other GI or complaints. He has no significant joint or bone pain. He does not complain of headache or dizziness. He has no numbness/paresthesia or other residual neuropathy symptoms. Medications: Acetaminophen 1 Tablet (of 500 mg) Oral PRN, Lisinopril 1 Tablet (of 10 mg) Oral daily, Multi Vitamin Daily 1 Tablet Oral daily Allergies: No Known Allergies. Vital Signs: Performed on Jul 24, 2021 11:19 Height - 72.00 in Weight - 326.4 lbs (HIGH) BSA - 2.62 sq.m BMI - 44.27 (HIGH) Temperature - 97.7 F (LOW) Pulse - 68 /min Respiration - 18 /min BP - 143/94 mm(hg) (HIGH) O2 Sat - 96 % Pain - 0 Fatigue - 0 Physical Examination: Constitutional - He looks good generally, Eyes - Sclerae nonicteric. Conjunctivae clear, ENMT - No lesions noted in the oral cavity, Hematologic/Lymphatic - No cervical, clavicular, or axillary adenopathy, Respiratory - Lungs are clear with good air movement bilaterally, Cardiovascular - Heart rhythm is regular. There is no murmur, gallop, or rub noted, Abdomen - Soft. Liver and spleen are not enlarged. There is no abdominal mass or ascites noted and there is no inguinal adenopathy, Extremities - No edema, Neurologic - No focal neurologic deficits noted. Lab/Imaging: Test performed on May 28, 2021 09:34 Sodium 139 mmol/L Potassium 4.3 mmol/L Chloride 100 mmol/L CO2 27 mmol/L Anion Gap 16.3 BUN 13 mg/dL Creatinine 0.9 mg/dL Cr Clearance (Est) 215.9200 mL/min eGFR 92.1 mL/min Glucose 106 mg/dL Osmolality - Calculated 289 mOsm/kg Calcium 9.4 mg/dL Protein, Total 7.0 g/dL Albumin 4.1 g/dL Globulin 2.9 g/dL Bilirubin, Total 0.4 mg/dL ALT (SGPT) 24 U/L AST (SGOT) 25 U/L Alkaline Phosphatase 52 IU/L WBC 7.0 10 3/uL RBC 4.99 10 6/uL HGB 15.3 g/dL HCT 47.0 % MCV 94.2 fL MCH 30.7 pg MCHC 32.6 g/dL RDW 13.2 % Platelet Count 266 10 3/cmm MPV 10.2 fL Neutrophils 4.41 10 3/uL Lymphocytes 1.9 10 3/uL Monocytes 0.5 10 3/uL Eosinophils 0.1 10 3/uL Basophils 0.1 10 3/uL Neutrophil % 63.5 % Lymphocyte % 26.6 % Monocyte % 7.2 % Eosinophil % 1.7 % Basophils % 0.7 % NRBC % 0 % CEA 1.4 ng/mL Problem List: 1. Moderately differentiated invasive adenocarcinoma of the sigmoid colon, stage IIIB (pT4a, pN1c, M0). Treatment included robotic assisted low anterior resection on 12/07/2018 followed by adjuvant chemotherapy with 4 cycles of oxaliplatin/Xeloda, completed in March 2019. 2. In January 2021 he was confirmed to have anastomotic recurrence in the distal sigmoid colon. He underwent laparoscopic low anterior resection on 02/07/2021. Pathologic staging was IIA (pT3, pN0, M0). 3. Hypertension. 4. Anxiety. 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 He underwent robotic-assisted low anterior resection on 12/07/2018. He was given adjuvant chemotherapy with 4 cycles oxaliplatin/Xeloda, completed in March 2019. At his follow-up visit in April 2020 his liver enzymes were noted to be slightly elevated. CT abdomen/pelvis on 05/18/2020 showed no evidence of metastatic disease. At his follow-up visit in November 2020 he had reported some rectal bleeding. His CEA at that time was stable at 1.7 ng/mL and his clinical status was otherwise stable. His colonoscopy on 01/09/2021 showed evidence of anastomotic recurrence in the distal sigmoid colon, estimated at 15 to 16 cm. He was then referred to Dr. Bossman Alanis, and on 02/07/2021 he underwent laparoscopic low anterior resection. Pathology showed moderately differentiated invasive adenocarcinoma with transmural invasion into pericolonic adipose tissues. The margins were free. There was no involvement of 20 lymph nodes. Pathologic staging was pT3, pN0. With those findings, further adjuvant chemotherapy was not recommended. His genetic screening was negative. During follow-up he has been doing well clinically. He remains without evidence of disease following his surgery in February. He continues on expectant management. He is seeing Dr. Wynne on a regular basis, and that will include CBC, comprehensive metabolic profile, and CEA level every 6 months. I will plan to see him again next February, at which time he will be due for surveillance colonoscopy. I will plan to keep him on a yearly schedule with his surveillance CT scans. Signed By: Michael Dias M.D. <<Signature on File>>
== END 2021-07-24 09:55 | disposition home or self-care (01) ==
LOC: ONCMED 09:57
PROVIDERS: PCP Family Medicine; Visit Provider Internal Medicine Medical Oncology
DX: Z08 Encounter for follow-up examination after completed treatment for malignant neoplasm (principal); Z85.038 Personal history of other malignant neoplasm of large intestine; Z92.21 Personal history of antineoplastic chemotherapy; Z79.899 Other long term (current) drug therapy
CPT/HCPCS: 99214

== ENCOUNTER 2022-02-20 12:17 | Outpatient (CLI) | payer OTHER, SELFPAY ==
--- NOTE | 2022-02-23 14:48 | ONC FU_ITS ---
Dr. Dias Patient Follow-Up Note Patient: Chino Onofre Unit #: [id number]: [id number] Dicatated By: Michael Dias M.D.Date of Visit:Feb 20, 2022 Onc Med Follow-up/Prog Note Chief Complaint: Colon cancer. 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 In January 2021 he was found to have anastomotic recurrence, pT3, pN0. In September 2018 he had presented to the emergency room with new onset of hematochezia. CT of the abdomen/pelvis at that time showed a short segment of bowel within the mid sigmoid colon with some adjacent hazy and stranding opacities within the sigmoid mesentery. The findings were felt to most likely represent mild colitis. He had no further evaluation at that time. However, his symptoms persisted, and he then did have evaluation with sigmoidoscopy on 11/25/2018. It showed a malignant appearing mass at the sigmoid colon. Biopsy showed low-grade infiltrating adenocarcinoma. CT scans of the chest, abdomen, and pelvis continued to show a short segment narrowing of the mid sigmoid colon with wall thickening and surrounding mesenteric hyperemia, unchanged from the prior study. There was no retroperitoneal or periaortic lymphadenopathy noted, and there was no other evidence of metastatic disease in the chest, abdomen, or pelvis. His baseline CEA level was 8.1 ng/mL. He was referred to Dr. Roberson. On 12/07/2018 he underwent robotic-assisted low anterior resection. His laparoscopic exploration showed no unexpected abnormalities and no evidence of intra-abdominal metastasis. The tumor was clearly identified in the mid sigmoid:. It was noted to be rather bulky, but not adherent to any adjacent structures. Pathology showed moderately differentiated invasive adenocarcinoma measuring 8.6 x 5.7 cm. The tumor was noted to invade the visceral peritoneum. There was no involvement in 30 lymph nodes, but a separate tumor deposit was present. His pathologic staging was T4a, N1c. I had seen him initially on 12/22/2018. In the setting of stage IIIB disease, he was recommended to undergo adjuvant chemotherapy with 4 cycles of oxaliplatin/Xeloda. He returned to begin cycle 1 of his adjuvant chemotherapy on 01/06/2019. He tolerated it with acceptable toxicity, limited to mild fatigue and mild, transient neuropathy. He was able to continue with cycle 2 on 01/27/2019. He did have significant worsening of his neuropathy symptoms with his 2nd cycle of treatment, including pain in his left arm associated with the oxaliplatin infusion. He also had much more intense paresthesia and cold sensitivity, and it lasted longer. The oxaliplatin dosage was reduced beginning with cycle 3. He began his 4th cycle of treatment on 03/10/2019. His surveillance CT scan on 10/11/2019 showed no evidence of a neoplastic process in the chest or upper abdominal area. The abdomen/pelvis was inadvertently not requested. At his follow-up visit in April 2020 his liver enzymes are noted to be slightly elevated. His CT abdomen/pelvis on 05/18/2020 showed no evidence of metastatic disease. He was seen for a scheduled follow-up visit on 11/15/2020. His CEA was stable at 1.7 ng/mL. He also appeared stable clinically, but at that time he had developed some mild rectal bleeding which he had attributed to hemorrhoids. Subsequent to that visit, he was seen by Dr. Mackenzie for evaluation of the bleeding. His repeat colonoscopy on 01/09/2021 showed a protruding, small to medium sized malignant appearing mass in the distal sigmoid colon at the previous anastomosis, estimated at 15 to 16 cm. There were stigmata of bleeding from the mass. The rectum showed just small sized uncomplicated internal hemorrhoids without evidence of bleeding. There were no other abnormal findings. He was then referred to Dr. Bossman Alanis and he underwent laparoscopic low anterior resection on 02/07/2021. Pathology showed invasive moderately differentiated colonic adenocarcinoma with transmural invasion into the pericolonic adipose tissues occurring at the peritoneal reflection. The colonic lines of resection were free of neoplasm. There was scarring at the radial margin, but without visible tumor. There was no involvement in 20 pericolonic lymph nodes. Pathologic staging was pT3, pN0. With those findings, further adjuvant chemotherapy was not recommended. His genetic screening was negative. His medical illnesses have otherwise been limited to hypertension and some chronic anxiety. He has a history of having smoked cigars off and on for 10 to 11 years, but he quit smoking in 2018. INTERIM HISTORY: Surveillance CT scans on 05/28/2021 showed no evidence of metastatic disease in the chest, abdomen, or pelvis. The rectosigmoid anastomotic site appeared stable with no evidence of recurrent mass or adenopathy. There was evidence for hepatic steatosis. He is seen for a follow-up visit. He has been feeling okay. He has good energy and he has normal activity. ECOG score is 0. His appetite is good. He has no fever or night sweats. He has some allergy related sinus symptoms. He has not had sore mouth or throat. He does not complain of cough, and has not been having shortness of breath or chest pain. His bowel function is still a little different since his surgery, but adequate. He has no other GI or complaints. He has no significant joint or bone pain, and he has no residual neuropathy. Medications: Acetaminophen 1 Tablet (of 500 mg) Oral PRN, Losartan Potassium 1 Tablet (of 25 mg) Oral daily, Multi Vitamin Daily 1 Tablet Oral daily Allergies: No Known Allergies. Vital Signs: Performed on Feb 20, 2022 12:52 Height - 72.00 in BP - 138/85 mm(hg) Performed on Feb 20, 2022 12:51 Height - 72.00 in Weight - 338.4 lbs (HIGH) BSA - 2.66 sq.m BMI - 45.90 (HIGH) Temperature - 97.3 F (LOW) Pulse - 102 /min (HIGH) Respiration - 18 /min BP - 150/98 mm(hg) (HIGH) O2 Sat - 98 % Pain - 0 Fatigue - 2 Physical Examination: Constitutional - He looks good generally, Eyes - Sclerae nonicteric. Conjunctivae clear, ENMT - No lesions noted in the oral cavity, Hematologic/Lymphatic - No cervical, clavicular, or axillary adenopathy, Respiratory - Lungs are clear with good air movement bilaterally, Cardiovascular - Heart rhythm is regular. There is no murmur, gallop, or rub noted, Abdomen - Soft. Liver and spleen are not enlarged. There is no abdominal mass or ascites noted and there is no inguinal adenopathy, Extremities - No edema, Neurologic - No focal neurologic deficits noted. Lab/Imaging: His comprehensive metabolic profile on 01/06/2022 showed normal renal function with BUN 13 and creatinine 1.07 mg/dL. The bilirubin and liver enzymes were normal. His CEA was normal at 0.5 ng/mL. Problem List: 1. Moderately differentiated invasive adenocarcinoma of the sigmoid colon, stage IIIB (pT4a, pN1c, M0). Treatment included robotic assisted low anterior resection on 12/07/2018 followed by adjuvant chemotherapy with 4 cycles of oxaliplatin/Xeloda, completed in March 2019. 2. In January 2021 he was confirmed to have anastomotic recurrence in the distal sigmoid colon. He underwent laparoscopic low anterior resection on 02/07/2021. Pathologic staging was IIA (pT3, pN0, M0). 3. Hypertension. 4. Anxiety. 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 He underwent robotic-assisted low anterior resection on 12/07/2018. He was given adjuvant chemotherapy with 4 cycles oxaliplatin/Xeloda, completed in March 2019. At his follow-up visit in April 2020 his liver enzymes were noted to be slightly elevated. CT abdomen/pelvis on 05/18/2020 showed no evidence of metastatic disease. At his follow-up visit in November 2020 he had reported some rectal bleeding. His CEA at that time was stable at 1.7 ng/mL and his clinical status was otherwise stable. His colonoscopy on 01/09/2021 showed evidence of anastomotic recurrence in the distal sigmoid colon, estimated at 15 to 16 cm. He was then referred to Dr. Bossman Alanis, and on 02/07/2021 he underwent laparoscopic low anterior resection. Pathology showed moderately differentiated invasive adenocarcinoma with transmural invasion into pericolonic adipose tissues. The margins were free. There was no involvement of 20 lymph nodes. Pathologic staging was pT3, pN0. With those findings, further adjuvant chemotherapy was not recommended. His genetic screening was negative. During follow-up he has been doing well clinically. He remains without evidence of disease following his surgery in February 2021. He is due for surveillance colonoscopy, now will be scheduled with Dr. Mackenzie. His surveillance CT scans will be due in May. His laboratory studies are being monitored with Dr. Wynne. I will see him again in 6 months. Signed By: Michael Dias M.D. <<Signature on File>>
== END 2022-02-20 12:18 | disposition home or self-care (01) ==
LOC: ONCMED 12:22
PROVIDERS: PCP Family Medicine; Visit Provider Internal Medicine Medical Oncology
DX: C18.7 Malignant neoplasm of sigmoid colon (principal)
CPT/HCPCS: G0463

== ENCOUNTER 2022-05-27 11:32 | Outpatient (CLI) | payer OTHER, SELFPAY ==
--- NOTE | 2022-05-27 12:00 | CT_ITS ---
WS: [id number] CT CHEST, ABDOMEN AND PELVIS WITH CONTRAST HISTORY: COLON CANCER TECHNIQUE: Contiguous 5 mm axial imaging performed through the chest, abdomen and pelvis with IV cont rast, oral contrast has been provided. Coronal and sagittal reformats chest. Coronal and sagittal ref ormats through the abdomen and pelvis. All CT scans at [facility] use at least one of these d ose optimization techniques: automated exposure control; mA and/or kV adjustment per patient size (in cludes targeted exams where dose is matched to clinical indication); or iterative reconstruction. CONTRAST: Omnipaque 350; 95 mL IV. DLP: 1940.48 mGy.cm COMPARISON: 05/28/2021 and 01/24/[address]: Lungs are clear and well aerated. No mass, pneumonia or nodule. No pericardial or pleural e ffusion. No lymphadenopathy. Heart size is normal. Abdomen CT: Diffuse hepatic steatosis and mild hepatomegaly. Normal portal vein. No metastatic lesion s within the liver. Normal spleen and pancreas. Normal gallbladder and adrenal glands. Mild bilateral perinephric stranding with no obstruction. Normal aorta. No mesenteric or retroperitoneal adenopathy . Nondistended stomach. No small bowel obstruction. The appendix is normal. Anastomotic site at the rec tosigmoid junction is similar to prior studies. No recurrent mass or obstruction. No adjacent adenopa thy. Pelvic CT: No free fluid in the pelvis. No osteoblastic or osteolytic bone disease. CT/CT chest abd pel w con* IMPRESSION: 1. No evidence for metastatic disease within the chest, abdomen or pelvis. 2. Stable rectosigmoid postoperative anastomosis. No recurrent mass or adenopa thy. 3. No ascites. 4. Mild hepatomegaly and hepatic steatosis.
[2022-05-27] MEDS: iohexol 300 mg/mL 50 mL Btl IV (13:14)
[2022-05-27] MEDS: iohexol 350 mg/mL 100 mL Btl IV (13:15)
== END 2022-05-27 11:33 | disposition home or self-care (01) ==
PROVIDERS: PCP Family Medicine; Visit Provider Internal Medicine Medical Oncology
DX: C18.7 Malignant neoplasm of sigmoid colon (principal); R16.0 Hepatomegaly, not elsewhere classified; K63.89 Other specified diseases of intestine; K76.0 Fatty (change of) liver, not elsewhere classified
CPT/HCPCS: 71260; 74177

== ENCOUNTER 2022-11-26 07:57 | Oncology outpatient (recurring) (ONCR) | payer OTHER, SELFPAY | END 2022-12-09 23:59 | disposition home or self-care (01) | PROVIDERS: PCP Family Medicine; Visit Provider Internal Medicine Medical Oncology | DX: Z08 Encounter for follow-up examination after completed treatment for malignant neoplasm (principal); Z85.038 Personal history of other malignant neoplasm of large intestine; Z90.49 Acquired absence of other specified parts of digestive tract; Z86.010 Personal history of colon polyps; Z92.21 Personal history of antineoplastic chemotherapy ==

== ENCOUNTER 2023-05-25 11:44 | Outpatient (CLI) | payer OTHER, SELFPAY ==
[2023-05-25] MEDS: iohexol 350 mg/mL 500 mL Btl (per mL) PO (12:57)
--- NOTE | 2023-05-25 13:00 | CT_ITS ---
WS: [id number] CT CHEST, ABDOMEN, AND PELVIS TECHNIQUE: Contrast-enhanced CT of the chest, abdomen, and pelvis with coronal and sagittal reformatt ed images. CLINICAL INFORMATION: Surveillance COMPARISON: May 27, 2022 DLP: 1838.[address] scans at [facility] use at least one of these dose optimization techniques: automated e xposure control; mA and/or kV adjustment per patient size (includes targeted exams where dose is matc hed to clinical indication); or iterative reconstruction. CT CHEST: Lungs are well aerated. No acute pulmonary infiltrates. No focal pneumonia or pleural fluid. No suspicious pulmonary parenchymal abnormalities. No mediastinal or hilar lymphadenopathy. Normal ca liber thoracic aorta. Coronary calcification. No axillary lymphadenopathy. CT ABDOMEN AND PELVIS: Hepatomegaly. Diffuse fatty infiltration liver. No enhancing lesions in the liver. Normal portal vein and splenic vein. Normal spleen. Normal GE junction. A few normal sized paraesophageal lymph nodes u nchanged. Adrenal glands are normal. No hydronephrosis in either kidney. Pancreas appears normal.No adenopathy in the abdomen or pelvis.Normal appendix in the RIGHT lower ana drant. Stable rectosigmoid anastomosis. No evidence of recurrent mass or lymphadenopathy in the pelvi s. Hypertrophic changes thoracic spine. CT/CT chest abdpel w/*[id number] IMPRESSION: 1. No adenopathy in the chest abdomen or pelvis. 2. No suspicious pulmonary parenchymal normalities. 3. Stable postoperative changes rectosigmoid anastomosis. 4. Hepatomegaly with diffuse fatty infiltration liver.
[2023-05-25] MEDS: iohexol 350 mg/mL 500 mL Btl (per mL) IV (13:42)
== END 2023-05-25 11:45 | disposition home or self-care (01) ==
LOC: RAD 11:53
PROVIDERS: PCP Family Medicine; Visit Provider Internal Medicine Medical Oncology
DX: C18.7 Malignant neoplasm of sigmoid colon (principal); K76.0 Fatty (change of) liver, not elsewhere classified; R16.0 Hepatomegaly, not elsewhere classified; Z98.0 Intestinal bypass and anastomosis status
CPT/HCPCS: 71260; 74177; Q9967

== ENCOUNTER 2023-06-03 11:33 | Oncology outpatient (recurring) (ONCR) | payer OTHER, SELFPAY ==
[2023-06-02 14:15] VITALS: BP 162/95; PULSE 86; RESP 18; TEMP 36.8; O2SAT 98
[2023-06-02 14:23] LABS: Basophils % 0.4 %; Eosinophils # 0.1 10^3/uL (0.0-0.8); Eosinophils % 1.2 %; Lymphocytes # 2.2 10^3/uL (0.8-4.8); Lymphocytes % 23.2 %; Mean Corpuscular Hemoglobin 32.5 pg (28.0-34.0); Mean Corpuscular Volume 95.5 fl (80-94); Monocytes # 0.7 10^3/uL (0.2-0.9); Monocytes % 7.5 %; Neutrophils # 6.33 10^3/uL (1.8-7.7); Neutrophils % 67.5 %; Nucleated Red Blood Cells % 0 %; Platelet Count 227 10^3/cmm (130-400); Red Blood Count 4.92 10^6/uL (4.1-5.3); Red Cell Distribution Width 12.3 % (12.1-15.1); White Blood Count 9.4 10^3/uL (4.0-10.0)
[2023-06-02 14:56] LABS: Carcinoembryonic Antigen 1.3 ng/mL (0.0-4.7)
[2023-06-02 15:07] LABS: Alanine Aminotransferase 29 U/L (0-41); Albumin Level 4.2 g/dL (3.5-5.2); Alkaline Phosphatase 43 U/L (40-130); Anion Gap 15.1 (5-19); Aspartate Amino Transferase 26 U/L (0-40); Blood Urea Nitrogen 11 mg/dL (6-20); Calcium 9.8 mg/dL (8.5-10.5); Carbon Dioxide 26 mmol/L (22-29); Chloride 100 mmol/L (98-107); Globulin 2.8 g/dL (1.3-4.6); Glomerular Filtration Rate 91.3 mL/min (90-130); Glucose 100 mg/dL (65-115); Osmolality Calculated 283 mOsm/kg (285-295); Potassium 4.1 mmol/L (3.5-5.1); Sodium 137 mmol/L (136-145); Total Bilirubin 0.4 mg/dL (0.15-1.2)
== END 2023-06-08 23:59 | disposition home or self-care (01) ==
PROVIDERS: PCP Family Medicine; Visit Provider Internal Medicine Medical Oncology
DX: Z53.9 Procedure and treatment not carried out, unspecified reason (principal)
CPT/HCPCS: 36415; 80053; 82378; 85025

== ENCOUNTER 2023-12-07 09:52 | Oncology outpatient (recurring) (ONCR) | payer OTHER, SELFPAY ==
[2023-11-26 15:40] LABS: Basophils % 0.4 %; Eosinophils # 0.1 10^3/uL (0.0-0.8); Eosinophils % 1.3 %; Hematocrit 46.4 % (37-53); Lymphocytes # 2.5 10^3/uL (0.8-4.8); Lymphocytes % 27.5 %; Mean Corpuscular HGB Conc 33.6 g/dL (30-55); Mean Corpuscular Hemoglobin 32.2 pg (27-33); Mean Corpuscular Volume 95.9 fl (82-101); Mean Platelet Volume 9.8 fL (7.4-10.4); Monocytes # 0.8 10^3/uL (0.2-0.9); Monocytes % 8.5 %; Neutrophils # 5.68 10^3/uL (1.8-7.7); Neutrophils % 61.9 %; Nucleated Red Blood Cells % 0 %; Platelet Count 224 10^3/cmm (157-399); Red Blood Count 4.84 10^6/uL (3.85-5.65); Red Cell Distribution Width 12.2 % (12.1-15.1); White Blood Count 9.19 10^3/uL (3.29-11.43)
[2023-11-26 16:08] LABS: Carcinoembryonic Antigen 1.2 ng/mL (0.0-4.7)
[2023-11-26 16:23] LABS: Alanine Aminotransferase 38 U/L (0-41); Albumin Level 4.1 g/dL (3.5-5.2); Alkaline Phosphatase 44 U/L (40-130); Aspartate Amino Transferase 29 U/L (0-40); Blood Urea Nitrogen 15 mg/dL (6-20); Calcium 10.3 mg/dL (8.5-10.5); Carbon Dioxide 31 mmol/L (22-29); Chloride 99 mmol/L (98-107); Globulin 3.1 g/dL (1.3-4.6); Glomerular Filtration Rate 90.8 mL/min (90-130); Glucose 125 mg/dL (65-115); Osmolality Calculated 290 mOsm/kg (285-295); Sodium 139 mmol/L (136-145); Total Bilirubin 0.3 mg/dL (0.15-1.2); Total Protein 7.2 g/dL (6.6-8.7)
== END 2023-12-09 23:59 | disposition home or self-care (01) ==
PROVIDERS: Internal Medicine; PCP Family Medicine; Visit Provider Internal Medicine Medical Oncology
DX: C18.7 Malignant neoplasm of sigmoid colon (principal); I10 Essential (primary) hypertension; Z92.21 Personal history of antineoplastic chemotherapy; Z79.899 Other long term (current) drug therapy
CPT/HCPCS: 36415; 80053; 82378; 85025

== ENCOUNTER 2024-04-11 12:09 | Outpatient (CLI) | payer OTHER, SELFPAY ==
--- NOTE | 2024-04-11 12:30 | CTR_ITS ---
PROCEDURE INFORMATION: Exam: CT Chest With Contrast; Diagnostic Exam date and time: 04/11/2024 1:27 PM Age: 48 years old Clinical indication: Condition or disease; Other: Colon cancer; Prior surgery; Surgery date: 6+ months TECHNIQUE: Imaging protocol: Diagnostic computed tomography of the chest with contrast. Radiation optimization: All CT scans at this facility use at least one of these dose optimization techniques: automated exposure control; mA and/or kV adjustment per patient size (includes targeted exams where dose is matched to clinical indication); or iterative reconstruction. Contrast material: OMNI 350; Contrast volume: 100 ml; Contrast route: INTRAVENOUS (IV); COMPARISON: CT chest abdpel w/*[id number] 05/25/2023 1:31 PM RADIATION DOSE METRICS: Total DLP (mGy-cm): 1789.23 FINDINGS: Thyroid: Grossly unremarkable. Lungs: No focal consolidation. Pleural spaces: No pleural effusion. No pneumothorax. Heart: No cardiomegaly. No pericardial effusion. Mediastinal space: Trachea and central airways are grossly patent. No evidence of mediastinal mass or hematoma. Lymph nodes: No evidence of mediastinal or hilar adenopathy. Vasculature: No aneurysmal dilatation of the thoracic aorta. No evidence of dissection. Though this study is not tailored to evaluate for pulmonary thromboembolism, there is no evidence of PE within limitations of respiratory motion. Bones/joints: No evidence of acute fracture or aggressive osseous lesion. Soft tissues: No fluid collection or hematoma in the superficial soft tissues. PROCEDURE INFORMATION: Exam: CT Abdomen And Pelvis With Contrast Exam date and time: 04/11/2024 1:27 PM Age: 48 years old Clinical indication: Condition or disease; Other: Colon cancer; Prior surgery; Surgery date: 6+ months TECHNIQUE: Imaging protocol: Computed tomography of the abdomen and pelvis with contrast. Radiation optimization: All CT scans at this facility use at least one of these dose optimization techniques: automated exposure control; mA and/or kV adjustment per patient size (includes targeted exams where dose is matched to clinical indication); or iterative reconstruction. Contrast material: OMNI 350; Contrast volume: 100 ml; Contrast route: INTRAVENOUS (IV); COMPARISON: CT chest abdpel w/*[id number] 05/25/2023 1:31 PM RADIATION DOSE METRICS: Total DLP (mGy-cm): 1789.23 FINDINGS: Liver: Hepatic steatosis. No evidence of focal hepatic lesion. Gallbladder and bile ducts: Unremarkable. No intra-hepatic or extra-hepatic biliary dilatation. Pancreas: Unremarkable. Spleen: Unremarkable. Adrenal glands: Unremarkable. Kidneys and ureters: No renal parenchymal abnormality. No hydronephrosis or ureteral stone. Stomach and bowel: No evidence of bowel obstruction or perienteric inflammatory changes. Postsurgical changes of the rectosigmoid with anastomosis noted. No evidence of recurrent mass. Appendix: Normal appendix. Intraperitoneal space: No evidence of free air or fluid collection. Vasculature: No aneurysmal dilatation or dissection of the abdominal aorta. The celiac trunk, SMA and SCOT are grossly patent. No evidence of IVC thrombus. The portal vein, SMV and splenic veins are grossly patent. Lymph nodes: No adenopathy. Urinary bladder: Grossly unremarkable. Reproductive: Grossly unremarkable. Bones/joints: No evidence of acute fracture or aggressive osseous lesion. Soft tissues: No evidence of fluid collection or hematoma in the superficial soft tissues. CT/CT chest abdpel w/*[id number] IMPRESSION: 1. No evidence of metastatic disease in the chest. IMPRESSION: 1. No evidence of residual or recurrent disease in the abdomen or pelvis.
[2024-04-11] MEDS: iohexol 350 mg/mL 500 mL Btl (per mL) PO (12:35)
[2024-04-11] MEDS: iohexol 350 mg/mL 500 mL Btl (per mL) IV (13:34)
== END 2024-04-11 12:10 | disposition home or self-care (01) ==
LOC: RAD 12:13
PROVIDERS: PCP Family Medicine; Visit Provider Internal Medicine
DX: C18.7 Malignant neoplasm of sigmoid colon (principal)
CPT/HCPCS: 71260; 74177; Q9967

== ENCOUNTER 2024-06-20 14:44 | Oncology outpatient (recurring) (ONCR) | payer OTHER, SELFPAY ==
[2024-06-10 10:35] LABS: Basophils % 0.4 %; Eosinophils # 0.1 10^3/uL (0.0-0.8); Eosinophils % 1.8 %; Lymphocytes # 2.1 10^3/uL (0.8-4.8); Lymphocytes % 28.9 %; Mean Corpuscular HGB Conc 33.9 g/dL (30-55); Mean Corpuscular Hemoglobin 32.2 pg (27-33); Mean Platelet Volume 10.1 fL (7.4-10.4); Monocytes # 0.5 10^3/uL (0.2-0.9); Neutrophils % 61.5 %; Nucleated Red Blood Cells % 0 %; Platelet Count 224 10^3/cmm (157-399); Red Blood Count 4.84 10^6/uL (3.85-5.65); Red Cell Distribution Width 12.2 % (12.1-15.1); White Blood Count 7.16 10^3/uL (3.29-11.43)
[2024-06-10 10:56] LABS: Carcinoembryonic Antigen 1.1 ng/mL (0.0-4.7)
[2024-06-10 11:07] LABS: Alanine Aminotransferase 35 U/L (0-41); Alkaline Phosphatase 42 U/L (40-130); Anion Gap 16.6 (5-19); Aspartate Amino Transferase 26 U/L (0-40); Blood Urea Nitrogen 11 mg/dL (6-20); Calcium 9.7 mg/dL (8.5-10.5); Carbon Dioxide 26 mmol/L (22-29); Chloride 101 mmol/L (98-107); Glomerular Filtration Rate 90.8 mL/min (90-130); Glucose 170 mg/dL (65-115); Osmolality Calculated 291 mOsm/kg (285-295); Potassium 4.6 mmol/L (3.5-5.1); Sodium 139 mmol/L (136-145); Total Bilirubin 0.5 mg/dL (0.15-1.2)
== END 2024-07-09 23:59 | disposition home or self-care (01) ==
PROVIDERS: Internal Medicine; PCP Family Medicine; Visit Provider Internal Medicine Medical Oncology
DX: C18.7 Malignant neoplasm of sigmoid colon (principal)
CPT/HCPCS: 36415; 80053; 82378; 85025

== ENCOUNTER 2024-12-22 14:51 | Oncology outpatient (recurring) (ONCR) | payer OTHER, SELFPAY ==
[2024-12-19 15:09] LABS: Basophils % 0.3 %; Eosinophils # 0.1 10^3/uL (0.0-0.8); Lymphocytes # 1.7 10^3/uL (0.8-4.8); Lymphocytes % 18.4 %; Mean Corpuscular Volume 97.1 fl (82-101); Mean Platelet Volume 9.9 fL (7.4-10.4); Monocytes # 0.7 10^3/uL (0.2-0.9); Monocytes % 7.2 %; Neutrophils # 6.64 10^3/uL (1.8-7.7); Neutrophils % 72.8 %; Nucleated Red Blood Cells % 0 %; Platelet Count 207 10^3/cmm (157-399); Red Blood Count 4.53 10^6/uL (3.85-5.65); Red Cell Distribution Width 12.3 % (12.1-15.1); White Blood Count 9.13 10^3/uL (3.29-11.43)
[2024-12-19 15:42] LABS: Carcinoembryonic Antigen 1.5 ng/mL (0.0-4.7)
[2024-12-19 15:54] LABS: Alanine Aminotransferase 47 U/L (0-41); Albumin Level 4.1 g/dL (3.5-5.2); Alkaline Phosphatase 48 U/L (40-130); Anion Gap 15.1 (5-19); Aspartate Amino Transferase 31 U/L (0-40); Blood Urea Nitrogen 15 mg/dL (6-20); Calcium 9.7 mg/dL (8.5-10.5); Carbon Dioxide 28 mmol/L (22-29); Chloride 98 mmol/L (98-107); Glomerular Filtration Rate 90.4 mL/min (90-130); Glucose 162 mg/dL (65-115); Osmolality Calculated 288 mOsm/kg (285-295); Potassium 4.1 mmol/L (3.5-5.1); Sodium 137 mmol/L (136-145); Total Bilirubin 0.3 mg/dL (0.15-1.2); Total Protein 7.1 g/dL (6.6-8.7)
== END 2025-01-06 23:59 | disposition home or self-care (01) ==
PROVIDERS: Nurse Practitioner Family; PCP Family Medicine; Visit Provider Nurse Practitioner
DX: Z53.9 Procedure and treatment not carried out, unspecified reason (principal)
CPT/HCPCS: 36415; 80053; 82378; 85025

== ENCOUNTER 2025-06-29 12:09 | Oncology outpatient (recurring) (ONCR) | payer BC, SELFPAY ==
[2025-06-29] MEDS: iohexol 350 mg/mL 500 mL Btl (per mL) PO (13:16)
[2025-06-29] MEDS: iohexol 350 mg/mL 500 mL Btl (per mL) IV (13:25)
--- NOTE | 2025-06-29 16:45 | CTR_ITS ---
PROCEDURE INFORMATION: Exam: CT Chest With Contrast; Diagnostic Exam date and time: 06/29/2025 1:22 PM Age: 49 years old Clinical indication: Condition or disease; Other: Colon cancer; Prior surgery; Surgery date: 6+ months TECHNIQUE: Imaging protocol: Diagnostic computed tomography of the chest with contrast. Radiation optimization: All CT scans at this facility use at least one of these dose optimization techniques: automated exposure control; mA and/or kV adjustment per patient size (includes targeted exams where dose is matched to clinical indication); or iterative reconstruction. Contrast material: OMNI 350; Contrast volume: 100 ml; Contrast route: INTRAVENOUS (IV); COMPARISON: CT chest abdpel w/*[id number] 04/11/2024 1:27 PM RADIATION DOSE METRICS: Total DLP (mGy-cm): FINDINGS: Lungs: Unremarkable. No consolidation. No masses. Pleural spaces: Unremarkable. No pneumothorax. No pleural effusion. Heart: Unremarkable. No cardiomegaly. No pericardial effusion. Lymph nodes: Unremarkable. No enlarged lymph nodes. Vasculature: Unremarkable. No aortic aneurysm. Bones/joints: Unremarkable. No acute fracture. Soft tissues: Unremarkable. PROCEDURE INFORMATION: Exam: CT Abdomen And Pelvis With Contrast Exam date and time: 06/29/2025 1:22 PM Age: 49 years old Clinical indication: Condition or disease; Other: Colon cancer; Prior surgery; Surgery date: 6+ months TECHNIQUE: Imaging protocol: Computed tomography of the abdomen and pelvis with contrast. Radiation optimization: All CT scans at this facility use at least one of these dose optimization techniques: automated exposure control; mA and/or kV adjustment per patient size (includes targeted exams where dose is matched to clinical indication); or iterative reconstruction. Contrast material: OMNI 350; Contrast volume: 100 ml; Contrast route: INTRAVENOUS (IV); COMPARISON: CT chest abdpel w/*[id number] 05/25/2023 1:31 PM RADIATION DOSE METRICS: Total DLP (mGy-cm): FINDINGS: Lungs: Lung bases are clear. No pleural effusion. Liver: Normal. No mass. Gallbladder and biliary ducts: Normal. No calcified stones. No ductal dilation. Pancreas: Normal. No ductal dilation. Spleen: Normal. No splenomegaly. Adrenal glands: Normal. No mass. Kidneys and ureters: Normal. No hydronephrosis. Stomach and bowel: There is evidence of previous rectal surgery. Appendix: No evidence of appendicitis. Intraperitoneal space: Unremarkable. No free air. No significant fluid collection. Vasculature: Unremarkable. No abdominal aortic aneurysm. Lymph nodes: Unremarkable. No enlarged lymph nodes. Urinary bladder: Unremarkable as visualized. Reproductive: Unremarkable as visualized. Bones/joints: Unremarkable. No acute fracture. Soft tissues: Unremarkable. CT/CT chest abdpel w/*[id number] IMPRESSION: There is no evidence of active neoplastic disease.
== END 2025-07-09 23:59 | disposition home or self-care (01) ==
PROVIDERS: PCP Family Medicine; Visit Provider Nurse Practitioner
DX: Z53.9 Procedure and treatment not carried out, unspecified reason; C18.7 Malignant neoplasm of sigmoid colon; Z98.890 Other specified postprocedural states
CPT/HCPCS: 71260; 74177

== ENCOUNTER 2025-08-24 12:46 | Oncology outpatient (recurring) (ONCR) | payer BC, SELFPAY ==
[2025-08-24 13:44] LABS: Hematocrit 43.7 % (37-53); Hemoglobin 14.60 g/dL (11.27-16.99); Mean Corpuscular HGB Conc 33.4 g/dL (30-55); Mean Corpuscular Hemoglobin 31.9 pg (27-33); Mean Corpuscular Volume 95.4 fl (82-101); Nucleated Red Blood Cells % 0 %; Platelet Count 206 10^3/cmm (157-399); Red Blood Count 4.58 10^6/uL (3.85-5.65); White Blood Count 7.91 10^3/uL (3.29-11.43)
[2025-08-24 14:14] LABS: Carcinoembryonic Antigen 1.5 ng/mL (0.0-4.7)
[2025-08-24 14:25] LABS: Alanine Aminotransferase 28 U/L (0-41); Albumin Level 3.9 g/dL (3.5-5.2); Alkaline Phosphatase 50 U/L (40-130); Anion Gap 17.3 (5-19); Aspartate Amino Transferase 22 U/L (0-40); Blood Urea Nitrogen 18 mg/dL (6-20); Calcium 9.5 mg/dL (8.5-10.5); Carbon Dioxide 26 mmol/L (22-29); Chloride 99 mmol/L (98-107); Creatinine Clr Calc Pharmacy 153.6860; Globulin 2.5 g/dL (1.3-4.6); Glucose 272 mg/dL (65-115); Osmolality Calculated 298 mOsm/kg (285-295); Potassium 4.3 mmol/L (3.5-5.1); Sodium 138 mmol/L (136-145); Total Protein 6.4 g/dL (6.6-8.7)
== END 2025-09-08 23:59 | disposition home or self-care (01) ==
LOC: ONCMED 12:49
PROVIDERS: Internal Medicine; PCP Family Medicine; Visit Provider Nurse Practitioner
DX: Z53.9 Procedure and treatment not carried out, unspecified reason (principal)
CPT/HCPCS: 36415; 80053; 82378; 83615; 85025